=== PATIENT | male | born 1990 | race Caucasian/White ===

== ENCOUNTER 2018-03-03 20:26 | Emergency (ER) | payer OTHER ==
[~2018-03-03] VITALS: Ht 167.6 cm; Wt 72.6 kg
--- NOTE | 2018-03-03 20:46 | NUR ---
DR. AGUILAR AT BEDSIDE FOR MSE.
--- NOTE | 2018-03-03 21:25 | NUR ---
PATIENT IS NON COOPERATIVE WITH X-RAY, PATIENT WAS ASKED TO LAY ON HIS BACK TO TAKE X-RAY, PATIENT REFUSED TO REPOSTION ON HIS BACK. SOME X-RAYS WERE TAKEN, AFTER X-RAY MAINTENANCE SHOP TECHNICIAN LEFT THE ROOM, PATIENT STOOD UP AND AMBULATED IN THE ROOM AND LAYED DOWN ON HIS BACK. PATIENT REFUSED TO HAVE MORE X-RAYS TAKEN. DR. JEFF ARRINGTON.
--- NOTE | 2018-03-03 21:40 | NUR ---
PATIENT IS DISCHARGED BY DR. AGUILAR, PATIENT IS REFUSING TO LEAVE AT THIS TIME. SECURITY NOTIFIED.
--- NOTE | 2018-03-03 21:40 | NUR ---
DIANNE CALLED SPOKE WITH OFFICER # [id number].
--- NOTE | 2018-03-03 21:47 | NUR ---
UPON ARRIVAL TO ER PATIENT CHIEF COMPLAINT WAS NECK AND BILATERAL WRIST PAIN, X-RAYS WERE ORDERED BY DR. AGUILAR, PATIENT WAS NON-COMPLIANT WITH X-RAY. PATIENT WAS ASKED TO REPOSITION ON BACK, BUT REFUSED TO TURN. PATIENT DID NOT C/O ANY SI/HI IDEATION AT THIS TIME. PATIENT WAS IDENTIFIED HOMELESS, PATIENT WAS OFFERED RESOURCES BUT REFUSED, PATIENT ALSO REFUSED TO SING HOMELESS PATIENT WAIVER FORM.
--- NOTE | 2018-03-03 21:50 | NUR ---
Patient discharged to home in stable conditon. Written and verbal after care instructions NOT given. PATIENT WALKED OUT OF ER PRIOR TO RECEIVING DC INSTRUCTIONS.
[2018-03-03 21:56] VITALS: BP 116/70
== END 2018-03-03 21:58 | disposition home or self-care (01) ==
LOC: ER 20:27
DX: M25.531 Pain in right wrist (principal); F17.200 Nicotine dependence, unspecified, uncomplicated; Z59.0 Homelessness
CPT/HCPCS: 73110; A4663